=== PATIENT | female | born 1955 | race Caucasian/White ===

== ENCOUNTER → 2019-09-07 14:44 | Outpatient (CLI) | payer MEDICARE, SELFPAY ==
[2019-09-07 15:51] LABS: Hemoglobin A1C 6.3 % (4.0-6.0)
[2019-09-07 16:43] LABS: Anion Gap 11.6 mEq/L (5-15); Blood Urea Nitrogen 17 mg/dl (7-17); Calcium 9.4 mg/dl (8.4-10.2); Carbon Dioxide 31 mmol/L (22.0-30.0); Chloride 101 mmol/L (98-107); Estimated Glomerular Filt Rate 72 ml/min (>60); GFR (African American) 87 ML/MIN (>60); Glucose 81 mg/dl (74-100); Potassium 4.6 mmoL/L (3.5-5.1); Sodium 139 mmol/L (136-145)
[2019-09-07 17:01] LABS: T4 (Thyroxine) 14.6 ug/dl (5.53-11.0)
[2019-09-07 17:15] LABS: Thyroid Stimulating Hormone 0.07 uIU/mL (0.465-4.68)
== END ==
PROVIDERS: Visit Provider Family Medicine
DX: R07.9 Chest pain, unspecified (principal); R06.00 Dyspnea, unspecified; E11.9 Type 2 diabetes mellitus without complications; Z79.84 Long term (current) use of oral hypoglycemic drugs
CPT/HCPCS: 36415; 80048; 83036; 84436; 84443

== ENCOUNTER → 2019-09-28 12:38 | Outpatient (CLI) | payer MEDICARE, SELFPAY ==
--- NOTE | 2019-09-28 12:43 | CA_ITS ---
APPROVED REPORT EXAM: Comprehensive 2D, Doppler, and color-flow Echocardiogram Daycare Manager: Mago Trinidad CRT Ht: 5 ft 4 in Wt: 194lbs BSA: 1.93 BP: 137/57 mmHg Indications: Chest Pain, Congestive Heart Failure, COPD, Shortness of Breath, Diabetes, Hyperlipidemia, Hypertension/HDD, SHIVANI 2D Dimensions LVOT 2.02 cm (M/F) 1.5-2.5 M-Mode Dimensions RVDd 2.75 cm (0.9-2.6) LVDd 4.05 cm (3.5-5.7) LVDs 2.60 cm (3.5-5.7) IVSd 1.82 cm (0.6-1.1) PWd 0.97 cm (0.6-1.1) EF (Teich) 65.90% FS 35.80% EDV (Teich) 72.10 mL ESV (Teich) 24.60 mL LV Diastology E/A Ratio 0.71 Mitral Valve MV A Velocity 86.00 (40-130 cm/s) Left Ventricle Left atrium is mildly enlarged, left ventricle is normal size, mild concentric left ventricular hypertrophy, visually estimated ejection fraction 55% with no regional wall motion abnormality, grade 1 diastolic dysfunction seen without tissue Doppler evidence of raise left atrial pressure. Right Ventricle Right atrium is normal size, right ventricle is mildly enlarged with normal contractility. Aortic Valve Aortic valve is thickened and calcified leaflet chordae display good mobility, there is no aortic stenosis, there is mild aortic insufficiency. Mitral Valve Mitral valve leaflets are minimally thickened, there is mild mitral regurgitation. Tricuspid Valve Tricuspid valve is grossly normal, there is mild tricuspid regurgitation, tricuspid regurgitation jet velocity is inadequate for calculation of the right ventricular systolic pressure. Pulmonic Valve Pulmonic valve is poorly visualized. Great Vessels Aortic root is normal size. Pericardium No significant pericardial effusion noted. Conclusion 1. Mildly enlarged left atrium, normal left ventricular size, mild concentric left ventricular hypertrophy, visually estimated ejection fraction 55% with no regional wall motion abnormality, grade 1 diastolic dysfunction seen without tissue Doppler evidence of raise left atrial pressure. 2. Mildly enlarged right ventricle with normal contractility. 3. Thickened and calcified aortic valve without aortic stenosis, there is mild aortic insufficiency. 4. Mild mitral and tricuspid regurgitation. 5. No significant pericardial effusion noted. Electronically signed by : James Benton, 09/28/2019 18:38:12
== END ==
PROVIDERS: PCP Family Medicine; Visit Provider Urology
DX: E11.9 Type 2 diabetes mellitus without complications (principal); E78.5 Hyperlipidemia, unspecified; G25.81 Restless legs syndrome; I50.9 Heart failure, unspecified; J44.9 Chronic obstructive pulmonary disease, unspecified; R06.00 Dyspnea, unspecified; R07.9 Chest pain, unspecified
CPT/HCPCS: 93306

== ENCOUNTER → 2019-12-28 14:28 | Outpatient (CLI) | payer MEDICARE, SELFPAY ==
--- NOTE | 2019-12-28 14:31 | XR_ITS ---
PROCEDURE: XR CHEST PORTABLE CLINICAL HISTORY: crackles left base COMPARISON: No exams were available for comparison FINDINGS: The cardiomediastinal silhouette and pulmonary vascularity are within normal limits. The lungs are clear without infiltrates, suspicious nodules, or pleural effusions. No acute bony abnormalities. IMPRESSION: No acute findings. Dictated by: Steven Dykes MD 12/28/2019 16:42 Steven Dykes MD in [place] 12/28/2019 16:42
[2019-12-28 15:53] LABS: Basophils % 0.5 % (0.1-2.0); Eosinophils # 0.2 K/mm3 (0.0-0.4); Eosinophils % 2.3 % (0.1-12.0); Hematocrit 47.1 % (37.0-47.0); Hemoglobin 15.5 g/dL (12.2-16.2); Lymphocytes % 21.9 % (10-50); Mean Corpuscular HGB Conc 32.9 g/dL (31.8-35.4); Mean Corpuscular Hemoglobin 27.8 pg (27.0-31.2); Mean Corpuscular Volume 84.5 fl (81-99); Monocytes # 0.6 K/mm3 (0.1-1.0); Monocytes % 6.7 % (1.7-9.3); Neutrophils # 6.1 K/mm3 (1.8-7.8); Neutrophils % 68.5 % (37.0-80.0); Platelet Count 271 K/mm3 (142-424); Red Blood Count 5.58 M/mm3 (4.20-5.40); Red Cell Distribution Width 19.2 % (11.5-17.5); White Blood Count 8.9 K/mm3 (4.8-10.8)
[2019-12-28 16:36] LABS: Iron 84 ug/dL (37-170)
[2019-12-28 16:46] LABS: Total Iron Binding Capacity 347 ug/dL (265-497)
[2019-12-30 14:25] LABS: Covid-19 Nasal PCR Sendout Lex NOT DETECTED
== END ==
PROVIDERS: PCP Family Medicine; Visit Provider Family Medicine
DX: J06.9 Acute upper respiratory infection, unspecified (principal); D64.9 Anemia, unspecified
CPT/HCPCS: 71045; 83540; 83550; 85025; U0004

== ENCOUNTER → 2020-03-20 18:27 | Outpatient (CLI) | payer MEDICARE, SELFPAY ==
[2020-03-20 18:58] LABS: Chloride 102 mmol/L (98-107)
[2020-03-20 18:59] LABS: Potassium 5.1 mmoL/L (3.5-5.1); Sodium 137 mmol/L (136-145)
[2020-03-20 19:01] LABS: Alanine Aminotransferase 32 U/L (12-78); Alkaline Phosphatase 111 U/L (38-126); Anion Gap 10.1 mEq/L (5-15); Aspartate Amino Transferase 32 U/L (14-36); Bilirubin,Total 0.4 mg/dl (0.2-1.3); Blood Urea Nitrogen 16 mg/dl (7-17); Carbon Dioxide 30 mmol/L (22.0-30.0); Estimated Glomerular Filt Rate 72 ml/min (>60); GFR (African American) 87 ML/MIN (>60)
[2020-03-20 19:02] LABS: Albumin Level 4.3 g/dl (3.5-5.0); Albumin/Globulin Ratio 1.7 (1.1-1.8); Calcium 9.7 mg/dl (8.4-10.2); Chol/HDL Ratio 2.5 (1-3.5); Cholesterol 136 mg/dl (140-200); Globulin 2.5 g/dL (1.3-3.2); Glucose 105 mg/dl (74-100); HDL Cholesterol 55 mg/dl (40-60); Iron 81 ug/dL (37-170); Total Protein,Serum 6.8 g/dl (6.3-8.2); Triglycerides 241 mg/dl (30-150); VLDL Cholesterol 48 mg/dL (0-40)
[2020-03-20 19:03] LABS: Basophils # 0.1 K/mm3 (0-0.2); Basophils % 0.5 % (0.1-2.0); Eosinophils # 0.3 K/mm3 (0.0-0.4); Eosinophils % 2.8 % (0.1-12.0); Hematocrit 47.1 % (37.0-47.0); Hemoglobin 15.3 g/dL (12.2-16.2); Lymphocytes # 2.2 K/mm3 (0.7-4.5); Lymphocytes % 22.6 % (10-50); Mean Corpuscular HGB Conc 32.4 g/dL (31.8-35.4); Mean Corpuscular Hemoglobin 29.8 pg (27.0-31.2); Mean Platelet Volume 9.1 fl (7.4-10.4); Monocytes # 0.5 K/mm3 (0.1-1.0); Neutrophils # 6.8 K/mm3 (1.8-7.8); Neutrophils % 69.1 % (37.0-80.0); Platelet Count 320 K/mm3 (142-424); Red Blood Count 5.12 M/mm3 (4.20-5.40); Red Cell Distribution Width 14.2 % (11.5-17.5); White Blood Count 9.8 K/mm3 (4.8-10.8)
[2020-03-20 19:13] LABS: Direct LDL Cholesterol 45.74 mg/dL (100-129)
[2020-03-20 19:14] LABS: Adenovirus F 40/41, stool Not Detected (NotDetected); Astrovirus Not Detected (NotDetected); Campylobacter Not Detected (NotDetected); Clostridium Difficile A/B, PCR Not Detected (NotDetected); Cryptosporidium Not Detected (NotDetected); Cyclospora Cayetanesis Not Detected (NotDetected); Entamoeba histolytica Not Detected (NotDetected); Enteroaggregative E coli Not Detected (NotDetected); Enteropathogenic E coli Not Detected (NotDetected); Enterotoxigenic E coli Not Detected (NotDetected); Giardia lamblia Not Detected (NotDetected); Norovirus Not Detected (NotDetected); Plesimonas Shigalloides, PCR Not Detected (NotDetected); Rotavirus A Not Detected (NotDetected); Salmonella, PCR Not Detected (NotDetected); Sapovirus Not Detected (NotDetected); Shiga-like toxin E coli Not Detected (NotDetected); Shigella Enterovasive E coli Not Detected (NotDetected); Vibrio Cholerae Not Detected (NotDetected); Vibrio, PCR Not Detected (NotDetected); Yersinia Entercolitica, PCR Not Detected (NotDetected)
[2020-03-20 21:08] LABS: T4 (Thyroxine) 14.9 ug/dl (5.53-11.0)
[2020-03-20 21:20] LABS: Hemoglobin A1C 5.9 % (4.0-6.0)
[2020-03-20 21:22] LABS: Thyroid Stimulating Hormone 0.21 uIU/mL (0.465-4.68)
== END ==
PROVIDERS: Visit Provider Family Medicine
DX: R19.7 Diarrhea, unspecified (principal); E11.9 Type 2 diabetes mellitus without complications; Z79.84 Long term (current) use of oral hypoglycemic drugs; Z79.899 Other long term (current) drug therapy
CPT/HCPCS: 80053; 80061; 83036; 83540; 84436; 84443; 85025; 87506

== ENCOUNTER → 2020-04-27 18:22 | Outpatient (CLI) | payer MEDICARE, SELFPAY ==
[2020-04-27 18:50] LABS: Alanine Aminotransferase 31 U/L (12-78); Albumin Level 4.1 g/dl (3.5-5.0); Albumin/Globulin Ratio 1.7 (1.1-1.8); Alkaline Phosphatase 100 U/L (38-126); Anion Gap 13.7 mEq/L (5-15); Aspartate Amino Transferase 30 U/L (14-36); Bilirubin,Total 0.3 mg/dl (0.2-1.3); Blood Urea Nitrogen 21 mg/dl (7-17); Calcium 9.3 mg/dl (8.4-10.2); Carbon Dioxide 24 mmol/L (22.0-30.0); Chloride 104 mmol/L (98-107); Estimated Glomerular Filt Rate 72 ml/min (>60); GFR (African American) 87 ML/MIN (>60); Globulin 2.4 g/dL (1.3-3.2); Glucose 116 mg/dl (74-100); Potassium 4.7 mmoL/L (3.5-5.1); Sodium 137 mmol/L (136-145); Total Protein,Serum 6.5 g/dl (6.3-8.2)
[2020-04-27 19:25] LABS: Hemoglobin A1C 5.7 % (4.0-6.0)
== END ==
PROVIDERS: Visit Provider Family Medicine
DX: E11.9 Type 2 diabetes mellitus without complications (principal); Z79.84 Long term (current) use of oral hypoglycemic drugs
CPT/HCPCS: 80053; 83036

== ENCOUNTER → 2020-11-02 14:13 | Outpatient (CLI) | payer MEDICARE, SELFPAY ==
[2020-11-02 14:52] LABS: Creatinine,Urine Random 97 mg/dL (Not Estab.)
== END ==
PROVIDERS: Visit Provider Family Medicine
DX: E11.9 Type 2 diabetes mellitus without complications (principal); M54.9 Dorsalgia, unspecified; N39.0 Urinary tract infection, site not specified; B96.20 Unspecified Escherichia coli [E. coli] as the cause of diseases classified elsewhere; Z79.84 Long term (current) use of oral hypoglycemic drugs
CPT/HCPCS: 82570; 87086; 87088; 87186

== ENCOUNTER → 2021-01-08 14:52 | Outpatient (CLI) | payer MEDICARE, SELFPAY ==
[2021-01-08 15:25] LABS: Basophils # 0.1 K/mm3 (0-0.2); Basophils % 0.7 % (0.1-2.0); Eosinophils # 0.2 K/mm3 (0.0-0.4); Eosinophils % 2.5 % (0.1-12.0); Hematocrit 45.5 % (37.0-47.0); Hemoglobin 15.3 g/dL (12.2-16.2); Lymphocytes % 26.1 % (10-50); Mean Corpuscular HGB Conc 33.7 g/dL (31.8-35.4); Mean Corpuscular Hemoglobin 30.3 pg (27.0-31.2); Mean Platelet Volume 8.1 fl (7.4-10.4); Monocytes # 0.4 K/mm3 (0.1-1.0); Monocytes % 4.8 % (1.7-9.3); Neutrophils # 4.9 K/mm3 (1.8-7.8); Neutrophils % 65.9 % (37.0-80.0); Platelet Count 340 K/mm3 (142-424); Red Blood Count 5.06 M/mm3 (4.20-5.40); White Blood Count 7.5 K/mm3 (4.8-10.8)
[2021-01-08 16:53] LABS: Chloride 106 mmol/L (98-107); Hemoglobin A1C 5.6 % (4.0-6.0); Potassium 4.8 mmoL/L (3.5-5.1); Sodium 139 mmol/L (136-145)
[2021-01-08 16:56] LABS: Alanine Aminotransferase 20 U/L (12-78); Albumin Level 4.6 g/dl (3.5-5.0); Alkaline Phosphatase 95 U/L (38-126); Anion Gap 10.8 mEq/L (5-15); Aspartate Amino Transferase 34 U/L (14-36); Bilirubin,Total 0.3 mg/dl (0.2-1.3); Blood Urea Nitrogen 23 mg/dl (7-17); Carbon Dioxide 27 mmol/L (22.0-30.0); Cholesterol 260 mg/dl (140-200); Estimated Glomerular Filt Rate 63 ml/min (>60); GFR (African American) 76 ML/MIN (>60); Globulin 2.3 g/dL (1.3-3.2); Total Protein,Serum 6.9 g/dl (6.3-8.2); Triglycerides 209 mg/dl (30-150); VLDL Cholesterol 42 mg/dL (0-40)
[2021-01-08 16:57] LABS: Calcium 9.4 mg/dl (8.4-10.2); Chol/HDL Ratio 4.5 (1-3.5); Glucose 94 mg/dl (74-100); HDL Cholesterol 58 mg/dl (40-60)
[2021-01-08 17:08] LABS: Direct LDL Cholesterol 159.11 mg/dL (100-129)
[2021-01-08 17:27] LABS: Thyroid Stimulating Hormone 5.12 uIU/mL (0.465-4.68)
== END ==
PROVIDERS: Visit Provider Family Medicine
DX: E11.9 Type 2 diabetes mellitus without complications (principal); Z79.84 Long term (current) use of oral hypoglycemic drugs
CPT/HCPCS: 36415; 80053; 80061; 83036; 84443; 85025

== ENCOUNTER → 2021-02-01 11:47 | Outpatient (CLI) | payer MEDICARE, SELFPAY ==
[2021-02-01 12:07] LABS: Adenovirus,PCR Not Detected (NotDetected); Bordetella Pertussis Not Detected (NotDetected); Chlamydophila Pneumoniae, PCR Not Detected (NotDetected); Coronavirus 19, PCR Not Detected (NotDetected); Coronavirus 229E Not Detected (NotDetected); Coronavirus NL63 Not Detected (NotDetected); Coronavirus OC43 Not Detected (NotDetected); Coronovirus HKU1,PCR Not Detected (NotDetected); Human Metapneumovirus Not Detected (NotDetected); Influenza A, PCR Not Detected (NotDetected); Influenza AH1, 2009 Not Detected (NotDetected); Influenza AH1, PCR Not Detected (NotDetected); Influenza AH3,PCR Not Detected (NotDetected); Influenza B, PCR Not Detected (NotDetected); Mycoplasma Pneumoniae, PCR Not Detected (NotDetected); Parainfluenza 1, PCR Not Detected (NotDetected); Parainfluenza 2, PCR Not Detected (NotDetected); Parainfluenza 3, PCR Not Detected (NotDetected); Parainfluenza 4, PCR Not Detected (NotDetected); Respiratory Syncytial Virus Not Detected (NotDetected); Rhinovirus/Enterovirus Not Detected (NotDetected)
[2021-02-01 12:44] LABS: INR 1.41 (0.9-1.1); Prothrombin Time 15.5 seconds (10.1-12.5)
[2021-02-01 14:56] LABS: Hemoglobin A1C 5.7 % (4.0-6.0)
== END ==
PROVIDERS: Visit Provider Family Medicine
DX: E11.9 Type 2 diabetes mellitus without complications (principal); K29.70 Gastritis, unspecified, without bleeding; Z20.822 Contact with and (suspected) exposure to COVID-19; R79.1 Abnormal coagulation profile
CPT/HCPCS: 36415; 83036; 85610; 87581; 87632; 87798; C9803; U0003; U0005

== ENCOUNTER → 2021-04-17 13:15 | Outpatient (CLI) | payer MEDICARE, SELFPAY ==
[2021-04-17 14:08] LABS: Basophils # 0.1 K/mm3 (0-0.2); Basophils % 0.6 % (0.1-2.0); Eosinophils # 0.2 K/mm3 (0.0-0.4); Eosinophils % 2.2 % (0.1-12.0); Hematocrit 40.4 % (37.0-47.0); Hemoglobin 13.2 g/dL (12.2-16.2); Lymphocytes # 1.8 K/mm3 (0.7-4.5); Lymphocytes % 18.9 % (10-50); Mean Corpuscular HGB Conc 32.7 g/dL (31.8-35.4); Mean Corpuscular Hemoglobin 30.3 pg (27.0-31.2); Mean Corpuscular Volume 92.6 fl (81-99); Mean Platelet Volume 8.1 fl (7.4-10.4); Monocytes # 0.4 K/mm3 (0.1-1.0); Monocytes % 4.6 % (1.7-9.3); Neutrophils % 73.7 % (37.0-80.0); Platelet Count 284 K/mm3 (142-424); Red Blood Count 4.36 M/mm3 (4.20-5.40); Red Cell Distribution Width 13.7 % (11.5-17.5); White Blood Count 9.5 K/mm3 (4.8-10.8)
[2021-04-17 14:15] LABS: INR 1.16 (0.9-1.1)
[2021-04-17 14:22] LABS: Alanine Aminotransferase 38 U/L (12-78); Albumin Level 4.3 g/dl (3.5-5.0); Albumin/Globulin Ratio 2.3 (1.1-1.8); Alkaline Phosphatase 86 U/L (38-126); Anion Gap 13.8 mEq/L (5-15); Aspartate Amino Transferase 36 U/L (14-36); Bilirubin,Total 0.4 mg/dl (0.2-1.3); Blood Urea Nitrogen 33 mg/dl (7-17); Calcium 8.7 mg/dl (8.4-10.2); Carbon Dioxide 26 mmol/L (22.0-30.0); Chloride 101 mmol/L (98-107); Cholesterol 144 mg/dl (140-200); Estimated Glomerular Filt Rate 41 ml/min (>60); GFR (African American) 50 ML/MIN (>60); Globulin 1.9 g/dL (1.3-3.2); Glucose 152 mg/dl (74-100); HDL Cholesterol 48 mg/dl (40-60); Potassium 4.8 mmoL/L (3.5-5.1); Sodium 136 mmol/L (136-145); Total Protein,Serum 6.2 g/dl (6.3-8.2); Triglycerides 226 mg/dl (30-150); VLDL Cholesterol 45 mg/dL (0-40)
[2021-04-17 14:30] LABS: Hemoglobin A1C 5.4 % (4.0-6.0)
[2021-04-17 14:32] LABS: Direct LDL Cholesterol 57.08 mg/dL (100-129)
[2021-04-17 14:39] LABS: 25-OH Vitamin D, Total 35.5 ng/mL (30-100)
== END ==
PROVIDERS: Visit Provider Family Medicine
DX: E11.9 Type 2 diabetes mellitus without complications; Z00.00 Encounter for general adult medical examination without abnormal findings; E55.9 Vitamin D deficiency, unspecified; E87.6 Hypokalemia; Z86.73 Personal history of transient ischemic attack (TIA), and cerebral infarction without residual deficits; Z79.84 Long term (current) use of oral hypoglycemic drugs
CPT/HCPCS: 36415; 80053; 80061; 82306; 83036; 85025; 85610

== ENCOUNTER 2023-10-01 11:45 | Outpatient (CLI) | payer MEDICARE, SELFPAY ==
[2023-10-01 18:40] LABS: Basophils % 0.4 % (0.1-2.0); Eosinophils # 0.2 K/mm3 (0.0-0.4); Eosinophils % 1.8 % (0.1-12.0); Hematocrit 45.2 % (37.0-47.0); Hemoglobin 14.1 g/dL (12.2-16.2); Lymphocytes # 1.3 K/mm3 (0.7-4.5); Lymphocytes % 15.5 % (10-50); Mean Corpuscular HGB Conc 31.3 g/dL (31.8-35.4); Mean Corpuscular Hemoglobin 29.4 pg (27.0-31.2); Monocytes # 0.5 K/mm3 (0.1-1.0); Monocytes % 5.5 % (1.7-9.3); Neutrophils # 6.5 K/mm3 (1.8-7.8); Neutrophils % 76.9 % (37.0-80.0); Platelet Count 290 K/mm3 (142-424); Red Blood Count 4.81 M/mm3 (4.20-5.40); Red Cell Distribution Width 14.3 % (11.5-17.5); White Blood Count 8.5 K/mm3 (4.8-10.8)
[2023-10-01 18:59] LABS: Alanine Aminotransferase 30 U/L (12-78); Albumin Level 3.9 g/dl (3.5-5.0); Albumin/Globulin Ratio 1.6 (1.1-1.8); Alkaline Phosphatase 78 U/L (38-126); Anion Gap 11.1 mEq/L (5-15); Aspartate Amino Transferase 31 U/L (14-36); Bilirubin,Total 0.4 mg/dl (0.2-1.3); Blood Urea Nitrogen 34 mg/dl (7-17); Calcium 9.5 mg/dl (8.4-10.2); Carbon Dioxide 26 mmol/L (22.0-30.0); Chloride 107 mmol/L (98-107); Cholesterol 154 mg/dl (140-200); Estimated Glomerular Filt Rate 49 ml/min (>60); GFR (African American) 60 ML/MIN (>60); Globulin 2.4 g/dL (1.3-3.2); Glucose 103 mg/dl (74-100); HDL Cholesterol 52 mg/dl (40-60); Potassium 5.1 mmoL/L (3.5-5.1); Sodium 139 mmol/L (136-145); Total Protein,Serum 6.3 g/dl (6.3-8.2); Triglycerides 175 mg/dl (30-150); VLDL Cholesterol 35 mg/dL (0-40)
[2023-10-01 19:11] LABS: Direct LDL Cholesterol 58.66 mg/dL (100-129)
== END 2023-10-01 23:59 | disposition home or self-care (01) ==
LOC: LAB.DROPOF 10-02 12:20
PROVIDERS: PCP Family Medicine; Visit Provider Family Medicine
DX: E11.9 Type 2 diabetes mellitus without complications (principal); I50.9 Heart failure, unspecified; J44.9 Chronic obstructive pulmonary disease, unspecified; M79.7 Fibromyalgia; Z79.84 Long term (current) use of oral hypoglycemic drugs; Z87.891 Personal history of nicotine dependence
CPT/HCPCS: 80050; 80053; 80061; 84443; 85025

== ENCOUNTER 2024-05-26 14:31 | Outpatient (CLI) | payer MEDICARE, SELFPAY ==
[2024-05-26 18:54] LABS: Basophils % 0.3 % (0.1-2.0); Eosinophils # 0.2 K/mm3 (0.0-0.4); Eosinophils % 2.7 % (0.1-12.0); Hematocrit 42.6 % (37.0-47.0); Hemoglobin 13.4 g/dL (12.2-16.2); Lymphocytes # 1.7 K/mm3 (0.7-4.5); Lymphocytes % 19.9 % (10-50); Mean Corpuscular HGB Conc 31.5 g/dL (31.8-35.4); Mean Corpuscular Hemoglobin 28.2 pg (27.0-31.2); Mean Corpuscular Volume 89.7 fl (81-99); Mean Platelet Volume 10.3 fl (7.4-10.4); Monocytes # 0.6 K/mm3 (0.1-1.0); Monocytes % 6.5 % (1.7-9.3); Neutrophils # 6.1 K/mm3 (1.8-7.8); Nucleated Red Blood Cells # 0 10^3/uL; Nucleated Red Blood Cells % 0 %; Platelet Count 271 K/mm3 (142-424); Red Blood Count 4.75 M/mm3 (4.20-5.40); Red Cell Distribution Width 13.9 % (11.5-17.5); Red Cell Distribution Width-SD 46.3 fL; White Blood Count 8.7 K/mm3 (4.8-10.8)
[2024-05-26 19:01] LABS: Alanine Aminotransferase 25 U/L (12-78); Albumin Level 3.5 g/dl (3.5-5.0); Albumin/Globulin Ratio 1.8 (1.1-1.8); Alkaline Phosphatase 91 U/L (38-126); Anion Gap 12.3 mEq/L (5-15); Aspartate Amino Transferase 28 U/L (14-36); Bilirubin,Total 0.3 mg/dl (0.2-1.3); Blood Urea Nitrogen 25 mg/dl (7-17); Calcium 8.7 mg/dl (8.4-10.2); Carbon Dioxide 27 mmol/L (22.0-30.0); Chloride 103 mmol/L (98-107); Chol/HDL Ratio 2.9 (1-3.5); Cholesterol 137 mg/dl (140-200); Estimated Glomerular Filt Rate 55 ml/min (>60); GFR (African American) 67 ML/MIN (>60); Glucose 91 mg/dl (74-100); HDL Cholesterol 47 mg/dl (40-60); Potassium 5.3 mmoL/L (3.5-5.1); Sodium 137 mmol/L (136-145); Total Protein,Serum 5.5 g/dl (6.3-8.2); Triglycerides 208 mg/dl (30-150); VLDL Cholesterol 42 mg/dL (0-40)
[2024-05-26 19:12] LABS: Direct LDL Cholesterol 53.63 mg/dL (100-129)
[2024-05-26 19:18] LABS: T4 (Thyroxine) 12.8 ug/dl (5.53-11.0)
[2024-05-26 20:28] LABS: Creatinine,Urine Random 76 mg/dL (Not Estab.); Microalbumin < 6.000 mg/L (0-16.7)
== END 2024-05-26 23:59 | disposition home or self-care (01) ==
LOC: LAB.DROPOF 05-27 11:08
PROVIDERS: PCP Family Medicine; Visit Provider Family Medicine
DX: Z00.00 Encounter for general adult medical examination without abnormal findings (principal); Z13.29 Encounter for screening for other suspected endocrine disorder; Z13.220 Encounter for screening for lipoid disorders
CPT/HCPCS: 80053; 80061; 82043; 82570; 84436; 84443; 85025